=== PATIENT | female | born 1955 | race Two or more races ===

== ENCOUNTER 2022-10-09 06:35 | Day surgery (SDC) | payer OTHER ==
[~2022-10-09] VITALS: Ht 165.1 cm; Wt 63.5 kg
[2022-10-09] MEDS ORDERED: SURFAK240 M1 PO (14:12)
[2022-10-09] MEDS ORDERED: IBU800 MG PO (14:13)
[2022-10-09] MEDS ORDERED: GABAPENTIN300 MG PO (14:15)
== END 2022-10-09 17:50 | disposition home or self-care (01) ==
LOC: CIR.AMB 06:35
PROVIDERS: ATTEND Obstetrics & Gynecology Gynecology
DX: N81.5 Vaginal enterocele (principal); I10 Essential (primary) hypertension; E78.00 Pure hypercholesterolemia, unspecified; Z86.16 Personal history of COVID-19; E03.9 Hypothyroidism, unspecified; E11.9 Type 2 diabetes mellitus without complications; Z88.0 Allergy status to penicillin; Z20.822 Contact with and (suspected) exposure to COVID-19